=== PATIENT | female | born 1990 | race Caucasian/White ===

== ENCOUNTER 2023-10-21 16:55 | Inpatient (IN) ==
[2023-10-21 22:22] LABS: ABS Basophils 0.1 10^3/uL (0.0-0.1); ABS Eosinophils 0.2 10^3/uL (0.0-0.5); ABS Lymphocytes 4.1 10^3/uL (1.0-4.8); ABS Monocytes 0.7 10^3/uL (0.0-0.9); ABS Neutrophils 5.2 10^3/uL (1.5-7.6); ABS Nucleated RBC 0.01 10^3/ul; Eosinophil % 1.6 %; Hematocrit 38.6 % (35-45); Hemoglobin 12.5 g/dL (11.5-14.3); Lymphocyte % 40.7 %; Mean Corpuscular Hemoglobin 26.3 pg (27-33); Mean Corpuscular Hgb Conc 32.4 g/dL (31-36); Mean Corpuscular Volume 81.2 fL (80-97); Mean Platelet Volume 6.7 fL (7.5-11.2); Nucleated Red Blood Cells % 0.1 %/100WBC (0.0-0.8); Platelet Count 250 10^3/uL (150-450); Red Blood Count 4.76 10^6/uL (3.63-4.92); Red Cell Distribution Width 16.6 % (12-17); White Blood Count 10.2 10^3/uL (3.8-11.8)
[2023-10-21 22:35] LABS: Urine Appearance Clear; Urine Bilirubin Negative (Negative); Urine Blood Negative (Negative); Urine Color Yellow; Urine Glucose Negative (Negative); Urine Ketones Negative (Negative); Urine Nitrite Negative (Negative); Urine Protein Negative (Negative); Urine Specific Gravity 1.033 (1.002-1.030); Urine Urobilinogen Negative (Negative); Urine pH 5.5 (5.0-8.0)
[2023-10-21 22:42] LABS: Urine Benzodiazepine Screen None Detected (None Detect); Urine Cannabinoids Screen None Detected (None Detect); Urine Opiates Screen None Detected (None Detect)
[2023-10-21 23:00] LABS: ALT 16 U/L (7-52); AST 11 U/L (13-39); Albumin 3.9 g/dL (3.2-5.2); Albumin/Globulin Ratio 1.5 (1-3); Alkaline Phosphatase 66 U/L (35-149); Anion Gap 9 mmol/L (2-16); Blood Urea Nitrogen 17 mg/dL (6-24); CO2 Carbon Dioxide 29 mmol/L (22-32); Calcium 9.1 mg/dL (8.6-10.3); Chloride 100 mmol/L (101-111); Creatinine, Serum 1.07 mg/dL (0.51-0.95); Globulin 2.6 g/dL (2-4); Glucose 106 mg/dL (70-100); Potassium 4.5 mmol/L (3.5-5.0); Sodium 138 mmol/L (135-145); Total Bilirubin 0.6 mg/dL (0.2-1.0); Total Protein 6.5 g/dL (6.4-8.9); eGFR CKD-EPI 69.9 (>60)
[2023-10-21 23:07] LABS: HCG Pregnancy < 0.60 mIU/mL
[2023-10-22 05:57] LABS: TSH Ultra Thyroid Stim Horm 5.01 mcIU/mL (0.34-5.60)
[2023-10-22 08:49] LABS: HDL Cholesterol 31.7 mg/dL
[2023-10-22] MEDS ORDERED: COVID VAC 23-24(12+)(Moderna) SYR 0.5 ML IM ONE (09:00)
[2023-10-22] MEDS: Vitamin THERAPEUTIC TAB PO SCH (11:38)
[2023-10-22] MEDS ORDERED: Nicotine GUM 2MG FRUIT FLAVOR PO PRN (15:09)
[2023-10-22] MEDS: Nicotine PATCH 14 MG/24 HR PATCH TRANSDERM SCH (20:49)
[2023-10-24 23:18] LABS: High Sensitivity Troponin 1 Hr < 3 pg/mL (<15)
[2023-10-25] MEDS: Al Hydrox/Mg Hydrox/Simet LIQ 30 ML UDC PO PRN (20:54)
[2023-10-27 09:39] VITALS: BP 114/70
== END 2023-10-27 16:00 | disposition home or self-care (01) | DRG 753 ==
LOC: ED 16:55 → EDHOLD 21:02 → BSU 21:53
PROVIDERS: ADMIT Psychiatry & Neurology Psychiatry; ATTEND Psychiatry & Neurology Psychiatry